=== PATIENT | female | born 1995 | race African-American/Black ===

== ENCOUNTER 2019-04-27 10:25 | Emergency (ER) | payer MEDICAID ==
[~2019-04-27] VITALS: Ht 149.9 cm; Wt 75.3 kg
[2019-04-27 10:37] VITALS: BP 125/73
[2019-04-27] MEDS ORDERED: KETOROLAC TROMETH 60MG/2ML VIAL IM ONE (11:00)
== END 2019-04-27 11:35 | disposition home or self-care (01) ==
LOC: ER 10:25
DX: N94.6 Dysmenorrhea, unspecified (principal)
CPT/HCPCS: 81002; 81025; 96372; 99283; J1885